=== PATIENT | male | born 1940 | race Hispanic/Latino ===

== ENCOUNTER 2017-03-22 07:32 | Day surgery (SDC) | payer MEDICARE ==
[2017-03-22] MEDS ORDERED: ECOTRIN PO ONE (08:35)
[2017-03-22] MEDS ORDERED: NACL 0.9% 500 ML 500 ML IV SCH (09:00)
[2017-03-22 09:07] LABS: Basophils % (Auto) 0.7 % (0.0-1.8); Eosinophils % (Auto) 3.1 % (0.0-4.3); Hematocrit 40.7 % (35.5-45.6); Hemoglobin 13.4 gm/dl (11.8-15.2); Mean Corpuscular HGB Conc 33 % (32-34); Mean Corpuscular Hemoglobin 30 pg (28-32); Mean Corpuscular Volume 90 fl (84-94); Platelet Count 196 K/mm3 (140-440); Red Blood Count 4.52 M/mm3 (3.65-5.03); Red Cell Distribution Width 12.7 % (13.2-15.2); White Blood Count 12.9 K/mm3 (4.5-11.0)
[2017-03-22 09:26] LABS: INR 1.06 (0.87-1.13)
[2017-03-22 09:27] LABS: Anion Gap 15 mmol/L; BUN/Creatinine Ratio 18.75; Blood Urea Nitrogen 15 mg/dL (9-20); Calcium 9.1 mg/dL (8.4-10.2); Carbon Dioxide 26 mmol/L (22-30); Chloride 102.1 mmol/L (98-107); Glucose 144 mg/dL (75-100); Potassium 4.4 mmol/L (3.6-5.0); Sodium 139 mmol/L (137-145)
[2017-03-22] MEDS ORDERED: HEPARIN/NS 5000 UNIT/500ML(CATH LAB) 1,000 ML IR ONE (10:13)
[2017-03-22] MEDS ORDERED: CALAN ONE (10:13)
[2017-03-22] MEDS ORDERED: SUBLIMAZE ONE (10:14)
[2017-03-22] MEDS ORDERED: VERSED ONE (10:14)
[2017-03-22] MEDS: HEPARIN 10,000 UNITS/10 ML ONE ×2 (10:30→10:36)
[2017-03-22] MEDS: NITROGLYCERIN SYRINGE 3 ML ONE ×2 (10:30→10:36)
[2017-03-22] MEDS: XYLOCAINE 2% INFILTRATI ONE ×2 (10:30→10:34)
--- NOTE | 2017-03-22 11:25 | Prelim Cardiac Cath Report ---
Preliminary Cath Report - Hemodynamic Findings Aorta(AO): 120/80 Left Ventricular(LV): 120/16 - Other Findings Estimated blood loss: none Dominance: right LV Contractility: 55-60% Coronary Anatomy: LHC via RRA: Findings: 1. 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 Normal lv fxn (55-60%) 3. No as 4. Nl lvedp 5. No complications noted. Plan: Given sxs, markedly abnormal stress mpi, diabetes, severe complex and calcified multivessel disease including proximal LAD, recommend complete revascularization with CABG. Pt is clinically stable and cp-free. Will transfer to [facility] (Dr. Maya) for probable CABG. My finding, options, and plan of care were discussed with pt and family at length.
[2017-03-22 12:47] VITALS: BP 147/60
--- NOTE | 2017-03-22 16:57 | Short Stay Summary ---
Short Stay Documentation Date of service: 03/22/17 - History H&P: obtained from office - Allergies and Medications Current Medications: Allergies No Known Allergies Allergy (Verified 03/22/17 08:35) Home Medications Medication Instructions Recorded Confirmed Last Taken Type Metformin HCl [Glucophage] 1,000 mg PO BID 03/22/17 03/22/17 03/21/17 History Omeprazole 40 mg PO PRN PRN 03/22/17 03/22/17 03/21/17 History Simvastatin [Zocor TAB] 40 mg PO QHS 03/22/17 03/22/17 03/21/17 History Tamsulosin [Flomax] 0.4 mg PO QDAY 03/22/17 03/22/17 03/21/17 History - Brief post op/procedure progress note Date of procedure: 03/22/17 Pre-op diagnosis: abnormal stress test Post-op diagnosis: other (CAD) Procedure: [facility] - see cath report Anesthesia: local Estimated blood loss: none Pathology: none Condition: stable - Disposition Condition at discharge: Stable Disposition: [id number]/TX-[id number] ANOTHER TYPE [facility] - Discharge Diagnoses (1) Hyperlipidemia Status: Chronic Qualifiers: Hyperlipidemia type: H (2) Diabetes Status: Chronic Qualifiers: Diabetes mellitus type: D Diabetes mellitus complication status: D Diabetes mellitus complication detail: D Diabetic retinopathy severity: D Proliferative retinopathy type: P Diabetes mellitus macular edema: D Diabetes mellitus fpc insulin use: D Laterality: L Chronic kidney disease stage: C (3) Abnormal stress test Status: Chronic (4) CAD (coronary artery disease) Status: Chronic Qualifiers: Coronary Disease-Associated Artery/Lesion type: C [place] vs. transplanted heart: N Associated angina: A (5) Chest pain Status: Chronic Qualifiers: Chest pain type: C Ischemic chest pain type: I Short Stay Discharge Plan Activity: advance as tolerated Diet: low fat, low cholesterol, low salt Wound: open to air, keep clean and dry Follow up with: LAURA FRANCISCO MD [Primary Care Provider] - 7 Days
== END 2017-03-22 13:07 | disposition other institution (70) ==
LOC: OPU 07:32
PROVIDERS: ATTEND Internal Medicine
DX: I25.10 Atherosclerotic heart disease of native coronary artery without angina pectoris (principal); E78.4 Other hyperlipidemia; E11.9 Type 2 diabetes mellitus without complications; Z79.84 Long term (current) use of oral hypoglycemic drugs; Z79.899 Other long term (current) drug therapy
CPT/HCPCS: 36415; 80048; 85025; 85610; 85730; 93005; 93010; 93458; C1894; J1644; J2250; J3010; J7040; Q9967